=== PATIENT | female | born 1985 | race Caucasian/White ===

== ENCOUNTER 2018-11-16 10:33 | Day surgery (SDC) | payer BC ==
[2018-11-16] MEDS ORDERED: LIDOCAINE 100 MG SYRINGE (14:05)
[2018-11-16] MEDS ORDERED: PROPOFOL 40 ML (14:05)
== END 2018-11-16 16:15 | disposition home or self-care (01) ==
LOC: GIL 10:33
DX: K29.50 Unspecified chronic gastritis without bleeding (principal); K64.8 Other hemorrhoids; K63.89 Other specified diseases of intestine; K44.9 Diaphragmatic hernia without obstruction or gangrene
CPT/HCPCS: 43239; 88305; 88312